=== PATIENT | male | born 1990 | race Caucasian/White ===

== ENCOUNTER → 2019-01-29 | Outpatient (CLI) | payer OTHER ==
--- NOTE | 2019-01-29 14:42 | XR ---
EXAMINATION TYPE: XR cervical spine comp DATE OF EXAM: 01/29/2019 COMPARISON: None HISTORY: 28-year-old male left side of chin laceration, pain. S00.83XA S01.80XA S13.4XXA TECHNIQUE: 5 views. FINDINGS: Minimal uncovertebral joint and facet spurring mid to lower cervical spine. No prevertebral soft tiss ue swelling or predental space widening. Alignment is maintained. Disc spaces are also preserved. No significant bony neuroforaminal narrowing on either side. Normal odontoid view. IMPRESSION: No prevertebral soft tissue swelling or malalignment. Very minimal facet and uncovertebral joint spur ring mid to lower cervical spine.
--- NOTE | 2019-01-29 14:51 | XR ---
EXAMINATION TYPE: XR mandible complete DATE OF EXAM: 01/29/2019 COMPARISON: NONE HISTORY: S00.83XA S01.80XA S13.4XXA TECHNIQUE: 5 views of the mandible are submitted. FINDINGS: No evidence for mandibular fracture or osseous lesion. No radiopaque foreign body identifie d. IMPRESSION: Unremarkable study.
== END | disposition home or self-care (01) ==
LOC: RADXRMAIN 14:07
PROVIDERS: ATTEND Emergency Medicine
DX: S00.83XA Contusion of other part of head, initial encounter (principal); S01.80XA Unspecified open wound of other part of head, initial encounter; S13.4XXA Sprain of ligaments of cervical spine, initial encounter
CPT/HCPCS: 70110; 72050

== ENCOUNTER → 2022-07-18 | Outpatient (CLI) | payer BC ==
--- NOTE | 2022-07-18 08:24 | CT ---
EXAMINATION TYPE: CT sinus wo con DATE OF EXAM: 07/18/2022 COMPARISON: None HISTORY: Chronic sinusitis CT DLP: 725.2 mGycm. Automated Exposure Control for Dose Reduction was Utilized. TECHNIQUE: CT scan of the sinuses is performed without contrast, axial images are obtained, coronal r eformatted images are also reviewed. FINDINGS: There are a few scattered small mucous retention cysts in the ethmoid sinuses and mild mucosal thicke ellen in the inferior aspects of the maxillary sinuses. There are no air-fluid levels to suggest acute sinusitis. The ostiomeatal complexes are widely patent. The nasal cavity is unremarkable. The intraorbital contents appear normal and symmetric. The osseous structures are intact. The mastoid air cells and middle ear cavities are well aerated. IMPRESSION: Mild chronic inflammatory changes in the maxillary and ethmoid sinuses. There is no evidence of acute sinusitis.
== END | disposition home or self-care (01) ==
LOC: RADCTMAIN 06:32
PROVIDERS: ATTEND Otolaryngology
DX: J32.2 Chronic ethmoidal sinusitis (principal); J32.0 Chronic maxillary sinusitis
CPT/HCPCS: 70486